=== PATIENT | male | born 2005 | race Caucasian/White ===

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

== ENCOUNTER 2024-04-02 12:12 | Emergency (ER) | payer OTHER, SELFPAY ==
--- NOTE | ~2024-04-02 | XR_ITS ---
EXAMINATION: XR chest 2V DATE: 04/02/2024 12:45 INDICATION: Chest pain. Left arm numbness. TECHNIQUE: Frontal and lateral views of the chest were obtained. COMPARISON: Chest 2 views 12/21/2023, CT abdomen and pelvis 12/22/2023 FINDINGS: There is no pneumonia, pleural effusion, or pneumothorax. The heart size is normal. IMPRESSION: 1. No acute cardiopulmonary disease. Reviewed, dictated and finalized at location A. RITY BUSINESS ANALYST
--- NOTE | 2024-04-02 12:14 | ECG_ITS ---
Test Date: 2024-04-02 12:27:33 Measurements Intervals [place] Rate: 89 P: 42 GA: 149 QRS: 49 QRSD: 96 T: 50 QT: 354 QTc: 432 Interpretive Statements SINUS RHYTHM INCOMPLETE RIGHT BUNDLE BRANCH BLOCK BORDERLINE T WAVE ABNORMALITY- ANTERIOR LEADS BORDERLINE ECG No previous ECG available for comparison Electronically Signed On 04-02-2024 13:03:51 ASSIGNMENT DESK EDITOR by Herve Correa D.O.
[2024-04-02 12:20] VITALS: BP 140/89; PULSE 88; RESP 20; TEMP 36.3; O2SAT 100
--- NOTE | 2024-04-02 12:28 | ED.CHESTPAIN ---
HPI - Chest Pain General Chief Complaint: Chest Pain Stated Complaint: L CP Time Seen by Provider: 04/02/24 12:15 Focused HPI: Patient is a 19-year-old male presents to the ER with chest pain and right arm pain that started approximately 1 hour prior to arrival. He reports he has a history of chest pain and has been evaluated in the ER before, but they've said they can't do anything for me. Patient reports he has been working in his basement for the last 3-4 days dealing with mold. He denies any other medical history. GENERAL: Well-appearing, well-nourished, and in no acute distress. HEAD: Normocephalic, atraumatic. CHEST: Clear to auscultation. ?No respiratory distress. HEART: Regular rate and rhythm.? NEURO: ?Alert and oriented x3. Patient screened in triage and initial orders placed.? ?Additional care and disposition to be based upon?diagnostic testing and treatment. Related Data Allergies Allergy/AdvReac Type Severity Reaction Status Date / Time No Known Allergies Allergy Verified 12/21/23 22:46 [facility] Past Medical History Medical History History of drug abuse Social History Social History Smoking status: Former smoker Substance use: former Substance use type: crack/cocaine, heroin and amphetamines Course Vital Signs Vital signs: Vital Signs Temperature 36.3 C L 04/02/24 12:20 Pulse Rate 88 04/02/24 12:20 Respiratory Rate 20 04/02/24 12:20 Blood Pressure 140/89 04/02/24 12:20 Pulse Oximetry 100 04/02/24 12:20 Oxygen Delivery Room Air 04/02/24 12:20 Temperature 36.3 C L 04/02/24 12:20 Pulse Rate 88 04/02/24 12:20 Respiratory Rate 20 04/02/24 12:20 Blood Pressure 140/89 04/02/24 12:20 Pulse Oximetry 100 04/02/24 12:20 Oxygen Delivery Room Air 04/02/24 12:27 MDM - Chest Pain Lab Data 04/02/24 12:30 04/02/24 12:30 Labs: Lab Results 04/02/24 Range/Units 12:30 WBC 10.9 H (4.5-10.0) K/mm3 RBC 5.13 (4.6-6.20) M/mm3 Hgb 15.9 (14.0-18.0) g/dL Hct 44.4 (42.0-52.0) % MCV 86.5 (80-100) fl MCH 31.0 (26-34) pg MCHC 35.8 (32-36) g/dl RDW 12.2 (11.5-14.5) % Plt Count 242 (150-375) k/mm3 MPV 10.7 H (7.4-10.4) fl Immature Gran % (Auto) 0.5 (0-0.5) % Neut % (Auto) 55.0 (45.5-73.1) % Lymph % (Auto) 34.1 (18.3-44.2) % [place] % (Auto) 7.4 (2.6-8.5) % Eos % (Auto) 2.6 (0-4.4) % Baso % (Auto) 0.4 (0.2-1.2) % Lymph # (Auto) 3.73 H (0.9-3.2) K/mm3 [place] # (Auto) 0.8 H (0.1-0.6) K/mm3 Eos # (Auto) 0.3 (0-0.3) K/mm3 Baso # (Auto) 0.0 (0.0-0.1) K/mm3 Abs Immat Gran (auto) 0.06 H (0.00-0.031) K/mm3 Absolute Neuts (auto) 6.0 (1.3-6.7) K/mm3 Absolute Nucleated RBC 0.000 (0.0-0.012) K/mm3 Nucleated RBC % 0.0 (0.0-0.2) % PT 12.9 (11.1-14.7) Seconds INR 0.9 APTT 28.6 (22.3-36.8) Seconds Sodium 141 (137-145) mmol/L Potassium 3.8 (3.4-5.0) mmol/L Chloride 105 (98-107) mmol/L Carbon Dioxide 24 (22-30) mmol/L Anion Gap 12 (4-12) mmol/L BUN 8 L (9-20) mg/dL Creatinine 0.60 L (0.7-1.3) mg/dL Estim Creat Clear Calc 188 ml/min Estimated GFR > 60 (59 - ) Glucose 91 (65-110) mg/dL Calcium 9.6 (8.4-10.2) mg/dL Total Bilirubin 0.9 (0.2-1.3) mg/dL AST 41 (17-59) U/L ALT 71 H (6-50) U/L Alkaline Phosphatase 120 (38-126) U/L Troponin I < 0.012 (0.000-0.034) ng/mL Total Protein 8.0 (6.3-8.2) g/dL Albumin 4.6 (3.5-5.1) g/dL Lipase 83 (23-300) U/L Discharge Plan Discharge Clinical Impression: Atypical chest pain Patient Disposition: Elopement After Seen by Prov Condition: Stable Prescriptions: No Action dicyclomine 20 mg tablet 20 mg PO TID PRN (Reason: abdominal pain) Qty: 14 0RF polyethylene glycol 3350 [Miralax] 17 gram/dose powder 17 g PO BID Qty: 119 0RF docusate sodium [Dulcolax Stool Softener (dss)] 100 mg capsule 100 mg PO BID Qty: 14 0RF Follow-up/Referrals: Vicenta,MD Carter [Primary Care Provider] -
[2024-04-02 12:36] LABS: Basophils Percent Auto 0.4 % (0.2-1.2); Eosinophils Absolute Auto 0.3 K/mm3 (0-0.3); Eosinophils Percent Auto 2.6 % (0-4.4); Hematocrit 44.4 % (42.0-52.0); Hemoglobin 15.9 g/dL (14.0-18.0); Immature Granulocyte Absolute 0.06 K/mm3 (0.00-0.031); Immature Granulocyte Percent A 0.5 % (0-0.5); Lymphocytes Absolute Auto 3.73 K/mm3 (0.9-3.2); Lymphocytes Percent Auto 34.1 % (18.3-44.2); Mean Corpuscular HGB Conc 35.8 g/dl (32-36); Mean Corpuscular Volume 86.5 fl (80-100); Mean Platelet Volume 10.7 fl (7.4-10.4); Monocytes Absolute Auto 0.8 K/mm3 (0.1-0.6); Monocytes Percent Auto 7.4 % (2.6-8.5); Platelet Count Result 242 k/mm3 (150-375); Red Blood Count 5.13 M/mm3 (4.6-6.20); Red Cell Distribution Width 12.2 % (11.5-14.5); White Blood Count 10.9 K/mm3 (4.5-10.0)
[2024-04-02 12:46] LABS: Alanine Aminotransferase 71 U/L (6-50); Albumin Level 4.6 g/dL (3.5-5.1); Alkaline Phosphatase 120 U/L (38-126); Anion Gap 12 mmol/L (4-12); Aspartate Amino Transferase 41 U/L (17-59); Bilirubin,Total 0.9 mg/dL (0.2-1.3); Blood Urea Nitrogen 8 mg/dL (9-20); Calcium 9.6 mg/dL (8.4-10.2); Carbon Dioxide 24 mmol/L (22-30); Chloride 105 mmol/L (98-107); Estimated CRCL calculation 188 ml/min; Estimated Glomerular Filt Rate > 60; Glucose 91 mg/dL (65-110); INR 0.9; Lipase 83 U/L (23-300); Potassium 3.8 mmol/L (3.4-5.0); Prothrombin Time 12.9 Seconds (11.1-14.7); Sodium 141 mmol/L (137-145)
[2024-04-02 12:47] LABS: Partial Thromboplastin Time 28.6 Seconds (22.3-36.8)
[2024-04-02 12:58] LABS: Troponin I < 0.012 ng/mL (0.000-0.034)
--- NOTE | 2024-04-02 14:12 | PC.NURSE ---
Pt came up to desk stating he is going to another facility. Leaves in NAD.
== END 2024-04-02 14:41 | disposition left against medical advice (07) ==
PROVIDERS: Emergency Medicine; Emergency Provider Registered Nurse; PCP Pediatrics
DX: R07.89 Other chest pain (principal); Z87.891 Personal history of nicotine dependence
CPT/HCPCS: 36415; 71046; 80053; 83690; 84484; 85025; 85610; 85730; 93005; 99284